=== PATIENT | male | born 1955 | race Caucasian/White ===

== ENCOUNTER → 2023-10-06 06:23 | Day surgery (SDC) | payer OTHER, SELFPAY | LOC: GI 06:23 | PROVIDERS: ATTENDING PHYSICIAN Internal Medicine | DX: Z12.11 Encounter for screening for malignant neoplasm of colon (principal); Z86.010 Personal history of colon polyps; D12.0 Benign neoplasm of cecum; D12.3 Benign neoplasm of transverse colon; K63.5 Polyp of colon | CPT/HCPCS: 45385; 45381; 45380; 88305 ==

== ENCOUNTER 2024-03-15 06:33 | Day surgery (SDC) | payer OTHER, SELFPAY ==
[2024-03-15 10:41] VITALS: BMI 25.0
[2024-03-15 10:42] VITALS: BP 135/84; BMI 25.0
[2024-03-15 13:34] VITALS: BP 130/102
[2024-03-15 13:49] VITALS: BP 124/78
[2024-03-15 14:04] VITALS: BP 129/79
== END 2024-03-15 14:19 | disposition home or self-care (01) ==
LOC: SDS 06:33
PROVIDERS: ATTENDING PHYSICIAN Internal Medicine Gastroenterology
DX: D12.0 Benign neoplasm of cecum (principal); D12.2 Benign neoplasm of ascending colon; K64.0 First degree hemorrhoids; Z98.890 Other specified postprocedural states
CPT/HCPCS: 45390; 45385; 88305

== ENCOUNTER 2024-09-19 06:17 | Day surgery (SDC) | payer OTHER, SELFPAY | END 2024-09-19 10:10 | disposition home or self-care (01) | LOC: GI 06:17 | PROVIDERS: ATTENDING PHYSICIAN Internal Medicine | DX: Z12.11 Encounter for screening for malignant neoplasm of colon (principal); Z86.0100 Personal history of colon polyps, unspecified | CPT/HCPCS: G0105 ==

== ENCOUNTER → 2025-02-03 10:23 | Outpatient (REF) | payer OTHER, SELFPAY | LOC: RCS 10:23 | PROVIDERS: ATTENDING PHYSICIAN Nuclear Medicine Nuclear Cardiology; FAMILY PHYSICIAN Family Medicine | DX: R07.89 Other chest pain (principal); R06.02 Shortness of breath | CPT/HCPCS: 93306 ==

== ENCOUNTER → 2025-02-07 12:40 | Outpatient (REF) | payer OTHER, SELFPAY | LOC: RCS 12:40 | PROVIDERS: ATTENDING PHYSICIAN Nuclear Medicine Nuclear Cardiology; FAMILY PHYSICIAN Family Medicine | DX: R07.89 Other chest pain (principal); R06.02 Shortness of breath; R06.00 Dyspnea, unspecified | CPT/HCPCS: 93017 ==

== ENCOUNTER 2025-02-07 20:22 | Observation (INO) | payer OTHER, SELFPAY ==
[2025-02-07 14:19] LABS: Hematocrit 46.2 % (39.0-52.0); Hemoglobin 16.7 g/dL (13.0-18.0); Mean Corp Hgb Conc. 36.1 g/dL (33.0-37.0); Mean Corpuscular Volume 81.1 fL (80.0-94.0); Nucleated Red Blood Cells % 0 % (-); Platelet Count 162 10^3/uL (130-400); Red Cell Dist. Width 13.4 % (11.5-14.5)
[2025-02-07 14:26] LABS: APTT 27.6 Sec (23.4-35.0)
[2025-02-07 14:34] LABS: ALT (SGPT) 31 U/L (0-50); AST (SGOT) 29 U/L (17-59); Albumin 4.5 g/dl (3.5-5.0); Alkaline Phosphatase 53 U/L (38-126); Blood Urea Nitrogen 12 mg/dl (9-20); Calcium 9.4 mg/dl (8.4-10.2); Carbon Dioxide 24 mmol/L (22-30); Chloride 105 mmol/L (98-107); Glucose 86 mg/dl (70-99); Lipase 150 U/L (23-300); Potassium 4.3 mmol/L (3.5-5.1); Sodium 136 mmol/L (135-145); Total Protein 7.1 g/dl (6.3-8.2); eGFR > 60.00
[2025-02-07 14:40] LABS: Troponin I 0.027 ng/ml
--- NOTE | 2025-02-07 17:40 | ED.GENMED ---
History of Present Illness
General
Chief Complaint: Chest Pain
Source: patient
Exam Limitations: none
Time Seen by Provider: 02/07/25 17:40
Nursing documentation reviewed up to this point in time: agreed with
History of Present Illness
History of Present Illness:
Patient is a 69-year-old male with past medical history of GERD, fibromyalgia presents to the ER for evaluation. Patient was sent to the ER for an abnormal stress test. Patient reports he had the stress test this afternoon and did not have any
pain while doing the stress test however after noted some discomfort in his chest and right collarbone. He denies any chest pain now. He reports he does sometimes feel' funny .' He reports he has been shoveling snow and ice without any chest pain.
He did have an echocardiogram done on February 03
This showed normal left ventricular chamber size normal myocardial thickness and systolic function EF of 50 to 55% no valve disease and no change from May of 2024.
Past History
Past History
ED Past Medical History: Asthma and Other (EBV, chronic fatigue)
ED Past Surgical History: None
Social History
Tobacco: Non-smoker
Alcohol: Occasional
Drug: None
Personal:
Living: with family
Family History
Family History: Hypertension
Phy Exam
General Physical Exam
General Presentation: no apparent distress
General age: appears stated age
General Skin: warm and dry
General Habitus: normal
General Mental: alert
General Hydration: appears well hydrated
Cardiovascular Exam
Cardiovascular Exam: regular rate/rhythm, no murmur and normal peripheral pulses
Pulmonary Exam
Pulmonary Exam: lungs clear and no respiratory distress
Neurological Exam
Neurological Exam: alert and oriented x3
Musculoskeletal Exam
Musculoskeletal Exam: full ROM
Skin Exam
Skin Exam: normal color and warm/dry
Psychiatric Exam
Psychiatric Exam: normal mood/affect
Scores
Heart Score for Chest Pain Patients
STEMI patient?: Not applicable
Course
Orders/Labs/Results
Orders:
Orders
02/07/25 13:43
EKG [Electrocardiogram (*1)] Urgent
Reason for Study: Chest Pain
EKG- Treatment ONCE
02/07/25 14:00
Complete Blood Count/With Diff Urgent
Comprehensive Metabolic Panel Urgent
Lipase Urgent
PTT Urgent
Troponin I Urgent
02/07/25 18:06
Electrocardiogram (*1) Urgent
Reason for Study: Chest Pain
EKG- Treatment ONCE
02/07/25 18:20
Troponin I Urgent
02/07/25 19:12
Aspirin Chewable [Low Strength Aspirin] 324 mg PO NOW STA
02/07/25 14:00
02/07/25 14:00
Vital Signs
Initial and Last Documented VS:
Initial Vital Signs
Temp Pulse Resp BP Pulse Ox
98.4 F 88 18 151/86 100
02/07/25 13:50 02/07/25 13:50 02/07/25 13:50 02/07/25 13:50 02/07/25 13:50
Last Documented Vital Signs
Temp Pulse Resp BP Pulse Ox
98.4 F 68 17 143/85 100
02/07/25 13:50 02/07/25 19:00 02/07/25 19:00 02/07/25 19:00 02/07/25 17:43
Network Planner consulted with Physician
Network Planner consulted with physician?: Yes
Name of Physician Consulted: Misha
MDM/Problems Addressed
Differential Diagnosis Includes:
Not limited to ACS
MDM/Problems Addressed:
Patient is document is a 69-year-old male who failed a stress test today. Patient as per cardiology and continued chest pain with a positive EKG today.
Patient reported that he had some right-sided chest discomfort and pain in his collarbone and neck area after the stress test. He describes feeling funny however on repeat exam chest pain-free at this time. He was given 4 baby aspirin. His
initial cardiac troponin was 0.027 however repeat is 0.20.
With chest pain and and failed outpatient cardiac stress test would recommend admission. I did speak with cardiology who does agree. Case discussed with ED physician.
Chronic conditions affecting care:
GERD
*Pulse Oximetry
SaO2: 100
Oxygen Mode of Delivery: Room air
Patient hypoxic: no
*EKG
Interpreted by ED Provider?: Yes
Heart Rate: 85
Rate: normal
Rhythm: sinus
Ischemia: no ischemia
*Critical Care Note
Total Time (30-74mins, 75-104mins- exclusive of procedures): Not Applicable
Data Reviewed
Review of Other/Old Records Reveals: Other (Recent echo from February 03)
Source: patient and family
Patient Management
Discussion with other providers: Process Description Writer (cardiology DR Tovar )
ED Attending Note
-
Portions of this chart may have been created with voice recognition software.� Occasional wrong word or��sound alike� substitutions may have occurred due to the inherent limitations of voice recognition software.
Discharge Plan
Departure
Patient Disposition: Admit
Date of Disposition: 02/07/25
Time of Disposition: 19:20
Admit to: Telemetry
Admit to doctor: hospitalist
Presentation/result/management discussed w/ accepting MD/DO: Hospitalist
Patient with high blood pressure during this ER visit?: Yes
Condition: Fair
Covid-19: Not Applicable
Discharge Problem:
Chest pain
Prescriptions:
No Action
montelukast 10 MG tablet
10 mg PO HS
fluticasone propionate 1 SPRAY spray,suspension
1 spray intranasal DAILY PRN (Reason: allergies)
levalbuterol tartrate [Xopenex HFA] 15 GM HFA aerosol inhaler
15 gm IH DAILY PRN (Reason: sob)
famotidine 40 mg Tablet
40 mg PO DAILY
zinc 10 mg Tablet
10 mg PO DAILY
omeprazole 20 mg Tablet,Delayed Release (Dr/Ec)
20 mg PO DAILY
Vitamin D3 100 mcg (4,000 unit) Capsule
100 mcg PO ONCE
fluticasone furoate-vilanterol [Breo Ellipta] 200-25 mcg/dose Blister With Device
1 inh INHALATION DAILY
magnesium glycinate 118 mg magnesium Capsule
PO
Thc Gummies
Referrals:
Ethel Murillo DO [Family Provider, Family Practice]
Interventions
Interventions:
*General Assessment Last Done: 02/07/25 13:50
*Neglect/Abuse Screening Last Done: 02/07/25 13:50
*ED COVID-19 Vaccine History Last Done: 02/07/25 13:50
*ED Influenza Vaccine History Last Done: 02/07/25 13:50
[facility] Fall Risk Assessment Tool Last Done: 02/07/25 13:43
*Risk Screen - Suicide (C-SSRS) Last Done: 02/07/25 13:50
ED- Cardiac Assessment Last Done: 02/07/25 18:23
Discharge Date and Time
Print Language: PUERTO RICAN
[2025-02-07 18:58] LABS: Troponin I 0.020 ng/ml
--- NOTE | 2025-02-07 19:24 | HPS.HSE ---
Addendum entered and electronically signed by Venu Sidhu DO 02/07/25 21:44:
Patient seen and examined independently. Agree with findings and plan as set forth by PRICILLA Meyers.
Patient is a 69y M with PMH significant for asthma and GERD who was sent to ED from Cardiology office after abnormal stress test today. Patient reports intermittent chest discomfort for the past 3-4 weeks. Had OP stress today and noted chest
pain during the test. He was advised to present to the ED for hospitalization and further evaluation.
Ass:
Angina / Abnormal Stress Test
Asthma without Acute Exacerbation
GERD
Plan:
Observe overnight on monitored bed.
Follow serial troponin, EKG, etc.
Monitor for any new / worsening chest discomfort.
Cardiology consulted for further recommendations / possible ischemic evaluation.
Original Note:
Family Physician
-
Family Physician: Ethel Murillo
Chief Complaint
-
failed stress test
History of Present Illness
Patient is a 69-year-old male with past medical history significant for asthma and GERD who presented to [facility] ED for evaluation following a failed out patient stress test. Patient reports that he has had intermittent chest discomfort that radiated
into neck for past 3-4 weeks. All previous cardiac workup has been negative up until this point. Patient denies any fever, chills, cough, shortness of breath, palpitations, nausea, vomiting, constipation, diarrhea or urinary symptoms.
Medical History
Past Medical History
Past Medical History: Reports Other
Additional Past Medical History:
asthma
GERD
hiatal hernia
Past Surgical History: Reports Other
Additional Past Surgical History:
wisdom teeth extraction
colonoscopy
Social History
Tobacco: Non-smoker
Alcohol: None
Drug: Marijuana (gummies 10mg (takes 0.25-0.5 nightly))
Employment: Employed (works intermittently as a musician )
Family History
Family History: Not pertinent
Allergies / Home Medications
Allergies reflects when Allergies were last updated in [facility].
Home Medications with original date entered in [facility]
Allergy/Medication List:
Allergies
Allergy/AdvReac Type Severity Reaction Status Date / Time
Beef Containing Products Allergy Unknown Verified 02/07/25 13:54
meloxicam (From Mobic) Allergy Unknown Verified 02/07/25 13:54
Home Medications
montelukast 10 mg tablet 10 mg PO HS 08/25/13
levalbuterol tartrate 45 mcg/actuation aerosol inhaler (Xopenex HFA) 15 gm IH Q6HPRN PRN sob 10/22/18
Thc Gummies 2.5 - 10 mg PO HS 03/15/24
famotidine 40 mg tablet 40 mg PO HS 03/15/24
fluticasone furoate 200 mcg-vilanterol 25 mcg/dose inhalation powder (Breo Ellipta) 1 inh inhalation DAILY 03/15/24
magnesium glycinate 118 mg PO HS 03/15/24
omeprazole 20 mg tablet,delayed release 20 mg PO DAILY 03/15/24
zinc 10 mg tablet 30 mg PO DAILY 03/15/24
coenzyme Q10 30 mg capsule 30 mg PO DAILY 02/07/25
saw palmetto 160 mg capsule 160 mg PO BID 02/07/25
vitamin C 500 mg-multivitamin with minerals chewable tablet (Emergen-C) 2 tab PO DAILY 02/07/25
Review of Systems
-
History Source: Patient
Constitutional: Denies Fever or Chills
EENT: Denies Sore Throat
Respiratory: Denies Cough, Hemoptysis or Trouble Breathing
Cardiac: Reports Chest Pain; Denies Palpitations or Syncope
Abdomen/GI: Denies Abdominal Pain, Nausea, Vomiting or Diarrhea
: Denies Dysuria, Frequency or Urgency
Musculoskeletal: Denies Joint Pain
Skin: Denies Rash
Neurological: Denies Dizzy, Headache or Weakness
Physical Exam
Vital Signs
Vital Signs
Temp Pulse Resp BP Pulse Ox
98.4 F 68 17 143/85 100
02/07/25 13:50 02/07/25 19:00 02/07/25 19:00 02/07/25 19:00 02/07/25 17:43
Physical Exam
General: Well Developed, Well Nourished, No Apparent Distress, Comfortable and Conversant
HEENT: NormoCephalic, Moist mucous membranes, PERRLA, Nose Appears Normal and Ears Appear Normal
Respiratory: Clear and Non Labored Respirations; No Wheezes, Rales or Rhonchi
Cardiac: S1/S2 and Regular Rhythm; No Murmur, Rub, Gallop or Peripheral Edema
GI: Soft, Non Tender, Non Distended and Normal Bowel Sounds
Musculoskeletal: No Clubbing and No Cyanosis
Skin: Warm and IV/Catheter Site
Neuro: Awake and AO x 3
Psych: Calm and Intact Judgment/Insight
Laboratory Results
-
02/07/25 14:00
02/07/25 14:00
Laboratory Results
APTT 27.6 Sec (23.4-35.0) 02/07/25 14:00
Total Bilirubin 1.1 mg/dl (0.2-1.3) 02/07/25 14:00
AST 29 U/L (17-59) 02/07/25 14:00
ALT 31 U/L (0-50) 02/07/25 14:00
Alkaline Phosphatase 53 U/L (38-126) 02/07/25 14:00
Troponin I 0.020 ng/ml D 02/07/25 18:20
Lipase 150 U/L (23-300) 02/07/25 14:00
Data Reviewed
-
Medical Tests (Nuc Med, Echo, EKG etc): Report Reviewed by me (EKG: NORMAL SINUS RHYTHM)
Lab Data: Labs Reviewed by me (trop 0.027 & 0.020)
Impression/Plan
-
IMPRESSION/PLAN:
#failed out patient stress test, chest pain 2/2 ACS vs. asthma exacerbation
trop 0.027 & 0.020
EKG: NORMAL SINUS RHYTHM
- Admit to IVU
- Consult Cardiology
- NPO at midnight for possible label folder
- trend troponin
- EKG in AM
#asthma
- continue Breo Ellipta, Xopenex and montelukast
#GERD
- continue famotidine and omeprazole
Code status: full code
DVT prophylaxis: Lovenox Sq
[2025-02-07] MEDS: LOW STRENGTH ASPIRIN 324 MG PO (19:28)
--- NOTE | 2025-02-07 19:42 | ED.GENMED ---
History of Present Illness
General
Chief Complaint: Chest Pain
Time Seen by Provider: 02/07/25 17:40
Past History
Past History
ED Past Medical History: Asthma and Other (EBV, chronic fatigue)
ED Past Surgical History: None
Social History
Tobacco: Non-smoker
Alcohol: Occasional
Drug: None
Personal:
Living: with family
Family History
Family History: Hypertension
Course
Orders/Labs/Results
Orders:
Orders
02/07/25 13:43
EKG [Electrocardiogram (*1)] Urgent
Reason for Study: Chest Pain
EKG- Treatment ONCE
02/07/25 14:00
Complete Blood Count/With Diff Urgent
Comprehensive Metabolic Panel Urgent
Lipase Urgent
PTT Urgent
Troponin I Urgent
02/07/25 18:06
Electrocardiogram (*1) Urgent
Reason for Study: Chest Pain
EKG- Treatment ONCE
02/07/25 18:20
Troponin I Urgent
02/07/25 19:12
Aspirin Chewable [Low Strength Aspirin] 324 mg PO NOW STA
02/07/25 14:00
02/07/25 14:00
Vital Signs
Initial and Last Documented VS:
Initial Vital Signs
Temp Pulse Resp BP Pulse Ox
98.4 F 88 18 151/86 100
02/07/25 13:50 02/07/25 13:50 02/07/25 13:50 02/07/25 13:50 02/07/25 13:50
Last Documented Vital Signs
Temp Pulse Resp BP Pulse Ox
98.4 F 76 25 143/85 100
02/07/25 13:50 02/07/25 19:30 02/07/25 19:30 02/07/25 19:00 02/07/25 19:43
*Pulse Oximetry
SaO2: 100
Oxygen Mode of Delivery: Room air
ED Attending Note
ED Attending Note
Patient seen and examined by attending physician: Yes
I performed the substantive portion of visit, reviewed & personally made and approve the management plan that is documented in note by myself or LEXI.: Yes
ED Attending Note:
Patient with vague nondescript upper chest symptoms for a month. 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 Had an outpatient stress test that he failed. Sent for further evaluation and care. Patient currently asymptomatic.
Pulses are regular and strong. Extremities are unremarkable. No respiratory distress. Warm and dry. Speech normal. Grossly nonfocal.
Labs and EKG are stable. Troponin stable.
Based on the abnormal stress test I can only assume next step would be a cardiac cath. Patient being admitted for further care.
-
Portions of this chart may have been created with voice recognition software.� Occasional wrong word or��sound alike� substitutions may have occurred due to the inherent limitations of voice recognition software.
Discharge Plan
Departure
Patient Disposition: Admit
Date of Disposition: 02/07/25
Time of Disposition: 19:20
Admit to: Telemetry
Admit to doctor: hospitalist
Presentation/result/management discussed w/ accepting MD/DO: Hospitalist
Patient with high blood pressure during this ER visit?: Yes
Condition: Fair
Covid-19: Not Applicable
Discharge Problem:
Chest pain
Prescriptions:
No Action
montelukast 10 MG tablet
10 mg PO HS
fluticasone propionate 1 SPRAY spray,suspension
1 spray intranasal DAILY PRN (Reason: allergies)
levalbuterol tartrate [Xopenex HFA] 15 GM HFA aerosol inhaler
15 gm IH DAILY PRN (Reason: sob)
famotidine 40 mg Tablet
40 mg PO DAILY
zinc 10 mg Tablet
10 mg PO DAILY
omeprazole 20 mg Tablet,Delayed Release (Dr/Ec)
20 mg PO DAILY
Vitamin D3 100 mcg (4,000 unit) Capsule
100 mcg PO ONCE
fluticasone furoate-vilanterol [Breo Ellipta] 200-25 mcg/dose Blister With Device
1 inh INHALATION DAILY
magnesium glycinate 118 mg magnesium Capsule
PO
Thc Gummies
Referrals:
Ethel Murillo DO [Family Provider, Family Practice]
Interventions
Interventions:
*General Assessment Last Done: 02/07/25 13:50
*Neglect/Abuse Screening Last Done: 02/07/25 13:50
*ED COVID-19 Vaccine History Last Done: 02/07/25 13:50
*ED Influenza Vaccine History Last Done: 02/07/25 13:50
[facility] Fall Risk Assessment Tool Last Done: 02/07/25 13:43
*Risk Screen - Suicide (C-SSRS) Last Done: 02/07/25 13:50
ED- Cardiac Assessment Last Done: 02/07/25 18:23
Discharge Date and Time
Print Language: HEBREW
[2025-02-07] MEDS: SINGULAIR 10 MG PO (22:48)
[2025-02-07] MEDS: PEPCID 40 MG PO (22:48)
--- NOTE | 2025-02-07 23:16 | PTCARENOTE ---
Pt rec at HS from ED awake,alert no c/o cp. Sinus on telemetry. adm hx taken pt aware of npo status after mn for poss cath in am.
[2025-02-08 05:54] LABS: HDL Cholesterol 42 mg/dl; LDL Cholesterol, Calculated 101 mg/dl; Very Low Density Lipoprotein 30 mg/dl (0-30)
[2025-02-08 06:05] LABS: Troponin I 0.027 ng/ml
[2025-02-08] MEDS: NON-FORMULARY ITEM 1 UNIT INH (07:34)
[2025-02-08] MEDS: PROTONIX 40 MG PO (08:20)
[2025-02-08] MEDS: LOW STRENGTH ASPIRIN 81 MG PO (08:20)
--- NOTE | 2025-02-08 08:28 | CON.CAR ---
Addendum entered and electronically signed by Evans Ocasio MD 02/08/25 14:08:
Attending addendum: Patient seen and examined. PA note reviewed and findings independently confirmed by me. Briefly, this is a 69-year-old gentleman with a past medical history notable for fibromyalgia, GERD, and reactive airway disease who noted
the onset of substernal chest discomfort several months ago. He was referred for coronary angiography and completed 9 minutes on a Edurad protocol achieving 10 METS of physical activity. His electrocardiogram was notable for 1.[address]
segment depression in the inferior leads and lead V5-V6. He reported chest discomfort and was referred to the emergency department for further evaluation. He was admitted for observation and serial troponin levels were within normal limits.
GEN: AAO x 3.��No acute distress
HEENT:��NC/AT, sclera are anicteric, hearing and nares are normal.��MMM
LUNGS: Clear to bases bilaterally.��No wheezing even with forced expiration
CV: Regular rate and rhythm.��Normal S1/S2.�Murmur: None
ABD : Soft, Bowel sounds are present.
EXT: No CCE
NEURO: No focal neurologic deficits
IMPRESSION:
-Chest discomfort with abnormal stress test and 1.[address] segment depression.
-Estimated 10-year risk based on ACC/AHA risk calculator is around 15%
-Elevated blood pressures
RECOMMENDATION:
- Patient will be referred for coronary angiography given symptoms and abnormal stress
- He should monitor home blood pressures
- Would consider statin therapy regardless of angiographic findings given estimated risk and moderate range
- Discussed risks and benefits of coronary angiography with patient and his were agreeable to proceed
Original Note:
Consultation
Consultation Request
Date/Time Consultation Performed: 02/08/25
Requesting Provider: Dr. Blank
Performing Provider: Christa Patterson PA-C for Dr. Ocasio
Reason for Consultation: abnormal stress test
Medical History
-
Chief Complaint: abnormal stress test
History of Present Illness:
Patient is a 69-year-old male with past medical history of GERD, fibromyalgia, possible reactive airway disease who presented to [facility] for outpatient treadmill stress test 02/07/2025 due to symptoms of chest discomfort and shortness of breath. He
completed 9 minutes achieving 10 METS at 110% max predicted heart rate. He reported chest discomfort during peak exercise which persisted into recovery associated with 1.[address] depressions in the inferior leads and V6 with
resolution at 5 minutes and 50 seconds into recovery. Based on this he was referred to the ER and admitted for further evaluation. He is NPO. He does state he had some discomfort overnight intermittent, and relieved with time, however none at
present time.
PMH:
GERD
Fibromyalgia
Possible reactive airway disease
Past Medical History
Past Medical History: Other (in HPI)
Social History
Tobacco: Non-Smoker
Alcohol: None
Personal:
Living: With Family
Employment: Employed
Family History
Family History: Hypertension
Allergies / Home Medications
Allergy/AdvReac Type Severity Reaction Status Date / Time
Beef Containing Products Allergy Mild Unknown Verified 02/07/25 22:14
meloxicam (From Mobic) Allergy Unknown Verified 02/07/25 21:59
�Medication �Instructions �Recorded �Confirmed �Type
montelukast 10 mg tablet 10 mg PO HS 08/25/13 02/07/25 History
levalbuterol tartrate 45 15 gm IH Q6HPRN PRN sob 10/22/18 02/07/25 History
mcg/actuation aerosol inhaler
(Xopenex HFA)
Thc Gummies 2.5 - 10 mg PO HS 03/15/24 02/07/25 History
famotidine 40 mg tablet 40 mg PO HS 03/15/24 02/07/25 History
fluticasone furoate 200 1 inh inhalation DAILY 03/15/24 02/07/25 History
mcg-vilanterol 25 mcg/dose
inhalation powder (Breo Ellipta)
magnesium glycinate 118 mg PO HS 03/15/24 02/07/25 History
omeprazole 20 mg tablet,delayed 20 mg PO DAILY 03/15/24 02/07/25 History
release
zinc 10 mg tablet 30 mg PO DAILY 03/15/24 02/07/25 History
coenzyme Q10 30 mg capsule 30 mg PO DAILY 02/07/25 02/07/25 History
saw palmetto 160 mg capsule 160 mg PO BID 02/07/25 02/07/25 History
vitamin C 500 mg-multivitamin with 2 tab PO DAILY 02/07/25 02/07/25 History
minerals chewable tablet
(Emergen-C)
Review of Systems
-
History Source: Patient and Family
All other systems: Negative unless noted
Physical Exam
Vital Signs
Temp Pulse Resp BP Pulse Ox
98 F 67 16 132/86 98
02/08/25 07:13 02/08/25 07:37 02/08/25 07:37 02/08/25 07:12 02/08/25 07:37
Lab Results
02/07/25 14:00
02/07/25 14:00
Troponin I 0.027 ng/ml 02/08/25 04:54
Physical Exam
General: No Apparent Distress and Comfortable
HEENT: Normocephalic, Anicteric and Moist Mucous Membranes
Respiratory: Clear and Non Labored Respirations
Cardiac: S1/S2 and Regular Rhythm
GI: Soft, Non Tender, Non Distended and Normal Bowel Sounds
Musculoskeletal: No Clubbing, No Cyanosis and No Edema
Skin: Warm and Dry
Neuro: AO x 3
Impression / Plan
-
Primary certified medicine aide: Dr. Sultana
Assessment:
Abnormal treadmill stress test 02/07/2025
Chest discomfort and horizontal ST depression in inferior leads and V6 resolved at 6 minutes into recovery
GERD
Fibromyalgia
Possible reactive airway disease
ECHO 02/03/2025: EF 50 to 55%, no significant valvular disease
Plan:
- Patient underwent cardiac evaluation for chest discomfort and shortness of breath on 01/24/2025 and based on this was arranged for echocardiogram and stress test. Echocardiogram with results as above. Treadmill stress test completed yesterday,
02/07/2025. During test, patient experienced chest discomfort and horizontal ST depressions in inferior leads and V6 with resolution at 6 minutes. Due to his symptoms he was referred to the ER and admitted.
- Troponins overnight detectable but within normal limits
- EKG sinus rhythm. In sinus rhythm on review of telemetry overnight
- N.p.o. for cardiac catheterization today. Procedure reviewed with patient and at bedside.
- Was given 324 mg aspirin yesterday in ER. Continue 81 mg daily
- LDL 101. Not presently on statin therapy
- Further recommendations based on results of cardiac catheterization.
- Discussed with nursing
Data Reviewed
-
EKG: Tracing Personally Visualized and interpreted
Medical Tests (Nuc Med, Echo etc): Report Reviewed by me
Labs: Labs Reviewed by me
Old Records: Reviewed
[2025-02-08 10:45] LABS: Glycohemoglobin (HgbA1c) 5.0 % (4.0-5.9)
--- NOTE | 2025-02-08 12:07 | CM ---
Spoke with patient and in room, previously independent. Lives in 3 story home with 3 REBA. Patient has a SPC at home that he does not currently use. Denies DME or DC needs at this time. Plan to DC home when medically cleared. CM following.
--- NOTE | 2025-02-08 13:36 | ITS.CL.CATH ---
Electrical Cad Designer - Catheterization
Cardiac Catheterization
Procedure Report:
LEFT HEART CATHETERIZATION
Date of Procedure: February 08, 2025
Referring: Dr. Evans Ocasio
PROCEDURES:
1. Left heart catheterization with coronary and single-plane left ventriculography
INDICATION: This is a 69-year-old gentleman with a past medical history notable for GERD, fibromyalgia, and asthma. He was scheduled for an outpatient stress study on 02/07/2025 secondary to symptoms of chest discomfort and dyspnea. He completed 9
minutes on a Eduard protocol and developed substernal chest tightness during peak exertion with associated shortness of breath in conjunction with 1.[address] depression in the inferior leads taking several minutes to recover to baseline. He was
referred to the emergency department with ongoing chest discomfort. Serial troponin levels were within normal limits and he is now referred for coronary angiography.
ACCESS: Right radial artery, 6 Romanian sheath
HEMODYNAMICS : (mmHg)
AO (s/d) : 118/70, 94
LV (s/d) : 129/4
LVEDP : 12
CORONARY FINDINGS
DOMINANCE: Right
LEFT MAIN: Normal
LEFT ANTERIOR DESCENDING: The LAD arises normally from the left main and runs in the anterior interventricular groove. The LAD has minor irregularities over its course. A single sizable diagonal branch arises from the proximal third of the LAD and
is free of significant obstructive coronary disease
CIRCUMFLEX: The circumflex is a medium caliber nondominant vessel supplying a moderate-sized OM1. The circumflex continues in the AV groove terminating in a small to medium caliber posterolateral branch. There is a 30% mid circumflex stenosis just
beyond the only sizable obtuse marginal branch as the vessel continues in the AV groove
RIGHT CORONARY ARTERY: The right coronary artery is a large-caliber dominant vessel that is widely patent over its course
VENTRICULOGRAPHY: Left ventriculography is performed in an MATAMOROS projection. The digital single-plane left ventricular ejection fraction is estimated at 60%
SEDATION: 25 minutes of procedural sedation was utilized. An independent medical billing supervisor was present to assist with and help manage the patient's level of consciousness and physiologic status.
RADIATION SUMMARY: Fluoro Time (min): 2.5, Dose (mGy): 222, DAP (Gy.cm2) : 14.6
Closure Device: TR band
CONCLUSIONS
1. Nonobstructive coronary disease
2. Preserved LV systolic function
Copy to: Dr. Evans Ocasio
--- NOTE | 2025-02-08 14:57 | W.PN.HOSP.TC ---
Today's Communication/Plan
-
dc to home later
Assessment / Plan
Assessment / Plan
Assessment:
Abnormal stress test
- Cath 02/08 with Nonobstructive coronary disease
- dc on ASA and statin. Patient will consider starting the statin vs deferring, citing concerns for side effects. Patient will contact Dr. Sultana [facility] if he opts against starting Statin
- BB d/w Dr. Ocasio, he states no indication and for outpatient BP monitoring
Hx of Asthma
hx of GERD
Hx of FM
- continue home meds
- PCP f/u
More than 30 minutes spent in discharge including
Final examination of the patient
Summarizing hospital stay
Instructions for continuing care to all relevant caregivers
Preparation of discharge records, prescriptions, and referral forms
Total time spent (in minutes): 41
Anticipated Discharge: Today
Subjective/Interval History
-
Date of Service: February 08, 2025
s/p cath with nonobstructive disease
denies CP
Objective Data
-
Vital Signs:
Vital Signs
Temp Pulse Resp BP Pulse Ox
98.3 F 67 20 132/86 98
02/08/25 11:44 02/08/25 07:37 02/08/25 11:44 02/08/25 07:12 02/08/25 11:44
I&O
02/07/25 02/08/25 02/09/25
06:59 06:59 06:59
Intake Total 240 / 240
Balance 240 / 240
Physical Exam
-
General: No Apparent Distress
HEENT: Normocephalic and Atraumatic
Respiratory: Negative Wheezes
Cardiac: Regular Rhythm and S1/S2
GI: Soft and Nontender
Musculoskeletal: No Edema
Neuro: AO x 3
Psych: Calm
Data Reviewed
-
Total Time Spent with Patient (in minutes): 41
Labs: Labs Reviewed by me
--- NOTE | 2025-02-08 15:00 | W.DCSUMMARY ---
Discharge Summary
Discharge Data
Date of Admission: 02/07/25
Date of Discharge: 02/08/25
-
Pending Results: No
Hospital Course
69 y/o M, hx of past medical history of GERD, fibromyalgia, possible reactive airway disease who presented to [facility] for outpatient treadmill stress test 02/07/2025 due to symptoms of chest discomfort and shortness of breath. He completed 9 minutes
achieving 10 METS at 110% max predicted heart rate. He reported chest discomfort during peak exercise which persisted into recovery associated with 1.[address] depressions in the inferior leads and V6 with resolution at 5 minutes
and 50 seconds into recovery. Based on this he was referred to the ER and admitted for further evaluation. He underwent cath which showed nonobstructive CAD. He was discharged on ASA + statin and will follow up with Cardiology outpatient.
Discharge Plan
-
Patient Disposition: Home (Routine Discharge)
Discharge Diagnosis/Procedures: nonobstructive CAD on cath 02/08
Condition: Fair
Diet: Low Cholesterol and 2 Gram Sodium
Activity: As tolerated
Driving Restrictions: No driving for 24 hours
Stand Alone Forms: DC Instructions- Cath/EP Lab
Referrals:
Ethel Murillo DO [Family Provider, Family Practice]
Radha Us PA-C [Specified Professional Personl, Cardiology] - 03/02/25 8:40 am
Prescriptions:
New
aspirin 81 mg Tablet,Chewable
81 mg PO DAILY Qty: 100 0RF
atorvastatin [Lipitor] 10 mg tablet
10 mg PO HS Qty: 30 0RF
Continued
montelukast 10 MG tablet
10 mg PO HS
levalbuterol tartrate [Xopenex HFA] 15 GM HFA aerosol inhaler
15 gm IH Q6HPRN PRN (Reason: sob)
famotidine 40 mg Tablet
40 mg PO HS
zinc 10 mg Tablet
30 mg PO DAILY
Patient Comments:
pt states he takes 3-4 times week
omeprazole 20 mg Tablet,Delayed Release (Dr/Ec)
20 mg PO DAILY
fluticasone furoate-vilanterol [Breo Ellipta] 200-25 mcg/dose Blister With Device
1 inh INHALATION DAILY
magnesium glycinate 118 mg magnesium Capsule
118 mg PO HS
Thc Gummies
2.5 - 10 mg PO HS
saw palmetto 160 mg Capsule
160 mg PO BID
coenzyme Q10 [CoQ-10] 30 mg Capsule
30 mg PO DAILY
Emergen-C 500 mg Tablet,Chewable
2 tab PO DAILY
Discharge Orders:
Discharge Patient (As Directed); Ordered 02/08/25
Ordered By: Katina Blank
Care Plan Goals
Care Plan Goals:
Problem: Readiness for enhanced knowledge related to diagnosis and treatment plan
Goal: Understand your diagnosis and treatment plan needs, including medications if applicable.
Instructions: Know your diagnosis, underlying causes and treatment plan options, including medications if applicable. Consult with your health care team to learn about your diagnosis and treatment plan, including medications if applicable.
Discharge Date and Time
Print Language: ZIMBABWEAN
--- NOTE | 2025-02-08 17:30 | PTCARENOTE ---
Pt received this am with no c/o of any chest pain or sob. Room air sat 98%. SR, rate in the 70's. Pt returned post cath at 1350. Right rad band site WNL. Pt discharged to home with his at 1730. Discharge instructions given and reviewed with pt
and his with good understanding and all questions answered.
== END 2025-02-08 17:26 | disposition home or self-care (01) ==
LOC: IVU 20:22
PROVIDERS: Emergency Medicine; Nurse Practitioner; Nurse Practitioner Family; ADMITTING PHYSICIAN Hospitalist; ATTENDING PHYSICIAN Internal Medicine; EMERGENCY PHYSICIAN Emergency Medicine; FAMILY PHYSICIAN Family Medicine; OTHER PHYSICIAN Internal Medicine Interventional Cardiology
DX: R07.89 Other chest pain (principal); R06.02 Shortness of breath; R94.39 Abnormal result of other cardiovascular function study; I25.10 Atherosclerotic heart disease of native coronary artery without angina pectoris; M79.7 Fibromyalgia; K21.9 Gastro-esophageal reflux disease without esophagitis; J45.909 Unspecified asthma, uncomplicated; R53.82 Chronic fatigue, unspecified; Z79.51 Long term (current) use of inhaled steroids; Z79.899 Other long term (current) drug therapy; Z82.49 Family history of ischemic heart disease and other diseases of the circulatory system
CPT/HCPCS: 80053; 80061; 83036; 83690; 84484; 85025; 85730; 93005; 93458; 94640; 99152; 99153; 99284; C1769; G0378; Q9967